=== PATIENT | male | born 1965 | race Caucasian/White ===

== ENCOUNTER 2019-08-03 08:19 | Day surgery (SDC) | payer OTHER, MEDICAID ==
[2019-08-03] MEDS ORDERED: fentaNYL CITRATE/PF 100 MCG/2 ML AMP ONE (09:50)
[2019-08-03] MEDS ORDERED: MIDAZOLAM HCL 5 MG/5 ML VIAL ONE ×2 (09:50→09:51)
[2019-08-03] MEDS ORDERED: SIMETHICONE 40 MG/0.6 ML ML ONE (09:51)
[2019-08-03 12:15] VITALS: BP_SYST 109
== END 2019-08-03 12:30 | disposition home or self-care (01) ==
LOC: SDS 08:19 → SMU 08:19 → SDS 12:30
PROVIDERS: ATTEND Internal Medicine
DX: D64.9 Anemia, unspecified (principal); K29.50 Unspecified chronic gastritis without bleeding; E11.9 Type 2 diabetes mellitus without complications; I10 Essential (primary) hypertension; I25.2 Old myocardial infarction
CPT/HCPCS: 36415; 43239; 87081; 88305; 88312; 88313; G0378; J2250; J3010